=== PATIENT | male | born 1985 | race Caucasian/White ===

== ENCOUNTER 2022-04-04 07:12 | Emergency (ER) | payer OTHER ==
[2022-04-04 07:48] VITALS: BP 123/77; PULSE 63; RESP 16; TEMP 99.7; BMI 29.2
== END 2022-04-04 09:24 | disposition home or self-care (01) ==
LOC: FER 07:12
DX: S46.201A Unspecified injury of muscle, fascia and tendon of other parts of biceps, right arm, initial encounter (principal); X50.0XXA Overexertion from strenuous movement or load, initial encounter
CPT/HCPCS: 73070-TC-LT-FY; 99283-25